=== PATIENT | female | born 1960 | race African-American/Black ===

== ENCOUNTER 2018-08-09 14:25 | Day surgery (SDC) | payer OTHER ==
[2018-08-09] MEDS ORDERED: LIDOCAINE HCL 1%, 10 MG/ML (20ML VIAL) ONE (14:46)
[2018-08-09 18:14] VITALS: BP 135/90; PULSE 62; TEMP 97.4
--- NOTE | 2018-08-09 18:44 | PROC ---
Bone Marrow Aspiration/Biopsy - Consent Risks and Benefits Explained: Yes Consent on Chart: Yes - Procedure Location: Left Iliac Crest Anesthesia: 1% Lidocaine Specimen: Obtained Position: Other (right lateral) Patient tolerated procedure: Well with minimal pain Sterile Dressing Applied: Yes Remarks: Left lateral bone marrow biopsy
[2018-08-09] MEDS ORDERED: ACETAMINOPHEN 325 MG TABLET (FP) PO ONE (18:59)
--- NOTE | 2018-08-09 19:04 | HP ---
Satellite H - Chief Complaint Chief Complaint: Here for elective bone marrow biopsy for leukopenia. No symptoms History of Present Illness: here for elective bone marow bx Satellite Physical Exam - Physical Examination Vital Signs: Vital Signs Period Temp Pulse Resp BP Sys/Posadas Pulse Ox Last 24 Hr 97.4 F 62 18 135/90 General Appearance: Well Nourished, Alert & Oriented x3 Lung: Clear to auscultation Heart: Regular rate & rhythm, Normal S1, Normal S2 Abdomen: Soft, No tenderness, Normal bowel sounds Extremities: No edema Satellite Impression/Plan - Impression/Plan Impression: Leukopenia--? due to supplements. ? r/o MDS. bone marrow aspirate/ biopsy--check flow/FISH/myeloid molecular profile/ pathology. RTC 3 weeks
--- NOTE | 2018-08-17 16:31 | PATH ---
Surgical Pathology Report Patient Name: MICHAEL ASHBY [facility]. Rec. #: [id number] /Age/Gender: 1960 (Age: 57) / F Account: [id number] Location: AMBULATORY SURG Taken: 08/09/2018 Received: 08/10/2018 Reported: 08/17/2018 Physicians: Dominique Canchola M.D. Specimen(s) Received A: BONE MARROW BIOPSY B: BONE MARROW CLOT C: ASPIRATE SMEARS D: BONE MARROW BLOOD Clinical History Leukopenia r/o MDS Final Diagnosis BONE MARROW, CORE, CLOT, ASPIRATE, CORE BIOPSY: CORE BIOPSY SECTION CONSISTS ENTIRELY OF SINUSOIDAL BLOOD. CLOT BIOPSY SECTION SHOWS SMALL FRAGMENTS OF APPARENTLY NORMOCELLULAR MARROW WITH MATURING TRILINEAGE HEMATOPOIESIS ASPIRATE SMEARS ARE CELLULAR WITH SPICULES AND SHOW MATURING TRILINEAGE HEMATOPOIESIS. SEE COMMENT. Comment: Overt morphologic features diagnostic of a myelodysplastic syndrome are not identified. Potential secondary causes for the leukocytopenia should be excluded. Flow cytometry does not show evidence for an increased blast population, abnormal myeloid maturation or a lymphoproliferative disorder. Pending cytogenetic and molecular data will be helpful. Correlation with relevant clinical and laboratory findings is recommended. [facility] [place] [place] [id number] the diagnosis above reflects her opinion. Bone Marrow Aspirate Differential Count (500 cells counted) Cell type Result (%) Reference range (%) Cell type Result (%) Reference range (%) BLASTS 1.00 0-3 Promyelocytes 2.00 2-8 MYELOCYTES 10.00 10-13 Metamyelocytes 13.00 10-15 NEUTROPHILS/BANDS 31.00 25-40 Monocytes 0.00 0-1 EOSINOPHILS 2.00 1-3 Basophils 1.00 0-1 LYMPHOCYTES 9.00 10-15 Plasma cells 3.00 0-1 ERYTHROID SERIES 27.00 15-25 Pronormoblasts 1.00 0-2 M:E RATIO 2.1:1 Microscopic Extrinsic Cells: No Cellularity: 5 Falcon Giemsa stained aspirate smears are provided for review. 2/5 smears are cellular with spicules. The others are hypocellular and are aspicular. all 5 smears are covered by a thick layer of sinusoidal blood Erythroid Precursors: Are normoblastic without nuclear:cytoplasmic dyssynchrony Myeloid Precursors: Exhibit complete maturation to segmented neutrophils. Dysplastic features are not seen Megakaryocytes: Are present in adequate number and are morphologically unremarkable Lymphoid Cells: Exhibit no overt cytologic atypia. Lymphoid aggregates are not identified Plasma Cells: Exhibit no overt cytologic atypia Iron Stain: Storage iron is mildly increased. Ringed sideroblasts are absent. Bone Marrow Biopsy Microscopic Core biopsy is devoid of bony trabeculae and consists entirely of sunusoidal blood Iron Stain: Non contributory Reticulin Stain: Non contributory Biopsy Clot Microscopic Clot biopsy section consists mostly of sinusoidal blood. Small fragments of marrow elements of ~40% cellularity are noted. Maturing trilineage hematopoiesis is evident. Myeloid elements exhibit complete maturation to segmented neutrophils. An increase in blast cells is not evident. A few megakaryocytes are present. No significant lymphoid or plasma cell infiltrate is present. Granuloma are not identified Iron Stain A small amount of stainable iron is noted Flow cytometry result: In the sample analyzed, there is no evidence for abnormal myeloid maturation or an increased blast population. There is no evidence for a lymphoproliferative disorder. See [employer] report (Specimen #: [id number]) additional details. Cytogenetics and molecular studies pending. Electronically Signed Medina Acosta M.D. Gross Description A. Received in formalin, labeled with the patient's name and indicated on the requisition to be a bone marrow biopsy, is a 1.4 x 1.2 x 0.2 cm aggregate of red-brown blood clot, possibly containing bone fragments. No definite bone is identified grossly. The formalin is filtered and the specimen is entirely submitted in one cassette. B. Received in formalin, labeled with the patient's name and indicated on the requisition to be bone marrow clot, is a 2.7 x 2.5 x 0.3 cm aggregate of red brown blood clot. The specimen is sectioned and entirely submitted in one cassette. C. Received are 13 bone marrow aspiration smear slides. D. Received are 2 green top tubes and 2 lavender top tubes of bone marrow blood sent for ancillary testing. 08/10/2018 [facility]08/10/2018
== END 2018-08-09 19:29 | disposition home or self-care (01) ==
LOC: JASUSAT 14:25 → J7W 14:34 → JASUSAT 19:29
PROVIDERS: ATTEND Internal Medicine Hematology & Oncology
PROC: 07DR3ZX Extraction of Iliac Bone Marrow, Percutaneous Approach, Diagnostic (ICD-10-PCS; principal; 2018-08-09)
DX: D72.819 Decreased white blood cell count, unspecified (principal)
CPT/HCPCS: 88300-TC; 88305-TC; 88311-TC; 88313-TC

== ENCOUNTER 2022-07-23 04:17 | Day surgery (SDC) | payer OTHER ==
[2022-07-21 15:02] VITALS: BMI 18.6
[2022-07-23 09:41] VITALS: TEMP 98.6
[2022-07-23 11:16] VITALS: BP 133/51; PULSE 56; RESP 15
== END 2022-07-23 11:25 | disposition home or self-care (01) ==
LOC: JASU-ENDO 04:17
PROVIDERS: ATTEND Internal Medicine Gastroenterology
PROC: 0D5L8ZZ Destruction of Transverse Colon, Via Natural or Artificial Opening Endoscopic (ICD-10-PCS; principal; 2022-07-23 10:00)
DX: Z12.11 Encounter for screening for malignant neoplasm of colon (principal); Z83.71 Family history of colonic polyps; D12.3 Benign neoplasm of transverse colon; K57.30 Diverticulosis of large intestine without perforation or abscess without bleeding; K64.8 Other hemorrhoids
CPT/HCPCS: 88305-TC

== ENCOUNTER → 2024-08-24 | Day surgery (SDC) | payer OTHER ==
[2024-08-24 10:36] LABS: BASOPHILS # 0.04 x10^3/uL (0.01-0.08); EOSINOPHIL % 2.9 % (0.7-5.8); EOSINOPHILS # 0.09 x10^3/uL (0.04-0.36); HEMATOCRIT 39.7 % (34.1-44.9); HEMOGLOBIN 11.9 g/dL (11.2-15.7); MEAN CELL VOLUME 83.2 fl (79.4-94.8); MEAN PLT VOLUME 11.2 fl (9.4-12.3); MONOCYTE # 0.26 x10^3/uL (0.24-0.86); MONOCYTE % 8.4 % (4.7-12.5); PLATELET COUNT # 161 x10^3/uL (182-369); RDW 14.5 % (12.4-16.4)
[2024-08-24 10:55] LABS: CHLORIDE 107 mmol/L (98-107); POTASSIUM 3.9 mmol/L (3.5-5.1); SODIUM 142 mmol/L (136-145)
[2024-08-24 10:58] LABS: ALBUMIN 3.7 g/dl (3.4-5.0); CALCIUM 9.2 mg/dL (8.5-10.1); GLUCOSE,RANDOM 94 mg/dL (74-106)
[2024-08-24 10:59] LABS: ANION GAP 4 mmol/L (4-13); BLOOD UREA NITROGEN 15.2 mg/dL (7-18); CO2 31 mmol/L (21-32)
[2024-08-24 11:01] LABS: SGPT/ALT 33 U/L (13-61)
[2024-08-24 11:02] LABS: BILIRUBIN,TOTAL 0.4 mg/dL (0.2-1)
[2024-08-24 11:03] LABS: SGOT/AST 28 U/L (15-37); TOT PROT 7.1 g/dl (6.4-8.2)
[2024-08-24 11:04] LABS: ALK PHOS 82 U/L (45-117)
== END | disposition home or self-care (01) ==
LOC: JRADIR 09:23
PROVIDERS: ATTEND Internal Medicine Endocrinology, Diabetes & Metabolism
PROC: 0GBH3ZX Excision of Right Thyroid Gland Lobe, Percutaneous Approach, Diagnostic (ICD-10-PCS; principal; 2024-08-24)
DX: E04.1 Nontoxic single thyroid nodule (principal)
CPT/HCPCS: 10005; 36415; 76942; 80053; 84439; 84443; 84481; 85025; 88173; 88305-TC